=== PATIENT | male | born 1940 | race Caucasian/White ===

== ENCOUNTER 2019-06-25 10:44 | Inpatient (IN) ==
[2019-06-25 11:50] LABS: ALLEN TEST YES; BE 0.5 mmoll (-3.0-3.0); BLOOD TYPE ARTERIAL; HCO3-(ACT) 25.1 mmoll (20.0-26.0); METHB 0.7 % (0.0-1.5); O2(CT) 21.4 mL/dL (15.0-23.0); O2HB 91.8 % (95.0-99.0); PCO2(98.6) 32 mmHg (35-45); PO2(98.6) 65 mmHg (60-100); SAMPLE BLOOD; SAO2 95.2 % (95.0-100.0); THB 16.6 g/dL (11.5-17.4); pH(98.6) 7.47 (7.35-7.45)
[2019-06-25 11:52] LABS: MODALITY CANNULA
[2019-06-25 13:12] LABS: BASO# 0.03 X1000 (0.0-0.2); BASO% 0.3 % (0.0-0.8); EOS# 0.14 X1000 (0.0-0.7); EOS% 1.5 % (0.0-10.0); HEMATOCRIT 49.5 % (42.0-52.0); IMM GRAN# 0.03 X1000 (0.0-0.04); IMM GRAN% 0.3 % (0.0-0.5); LYMPH% 14.7 % (20.5-51.1); MCH 31.4 PG (27-31); MCHC 34.3 g/dL (33-37); MCV 91.3 FL (81-99); MONO# 1.62 X1000 (0.11-0.59); MPV 11.8 FL (7.4-10.4); NEUT# 6.29 X1000 (1.4-6.5); NEUT% 66.2 % (42.2-75.2); PLT 67 X1000 (130-400); RBC 5.42 XMIL (4.7-6.1); RDW 18.6 % (11.5-14.5); WBC 9.51 X1000 (4.8-10.8)
[2019-06-25 13:48] LABS: ALB/GLOB RATIO 0.9; CALCIUM 9.6 mg/dL (8.8-10.2); CREATININE 1.5 mg/dL (0.7-1.2); POTASSIUM 3.8 mmol/L (3.5-5.1); TOTAL BILIRUBIN 1.39 mg/dL (0.20-1.00); TOTAL PROTEIN 6.5 g/dL (6.3-8.3)
[2019-06-25 14:24] LABS: INR 1.34; PROTIME 16.8 Seconds (11.0-16.0)
[2019-06-26 08:21] LABS: BASO# 0.01 X1000 (0.0-0.2); BASO% 0.1 % (0.0-0.8); HEMATOCRIT 45.9 % (42.0-52.0); HEMOGLOBIN 15.4 g/dL (14.0-18.0); IMM GRAN# 0.03 X1000 (0.0-0.04); IMM GRAN% 0.4 % (0.0-0.5); LYMPH# 0.85 X1000 (1.2-3.4); LYMPH% 10.2 % (20.5-51.1); MCH 30.2 PG (27-31); MCHC 33.6 g/dL (33-37); MONO% 7.2 % (1.7-9.3); MPV 12.5 FL (7.4-10.4); NEUT# 6.83 X1000 (1.4-6.5); NEUT% 82.1 % (42.2-75.2); PLT 92 X1000 (130-400); RDW 17.5 % (11.5-14.5); WBC 8.32 X1000 (4.8-10.8)
[2019-06-26 08:31] LABS: INR 1.49; PROTIME 18.3 Seconds (11.0-16.0)
[2019-06-26 08:35] LABS: ALB/GLOB RATIO 1.3; ALBUMIN 3.4 g/dL (3.5-5.0); CALCIUM 9.2 mg/dL (8.8-10.2); CREATININE 1.3 mg/dL (0.7-1.2); POTASSIUM 3.6 mmol/L (3.5-5.1); TOTAL BILIRUBIN 1.43 mg/dL (0.20-1.00); TOTAL PROTEIN 6.1 g/dL (6.3-8.3)
[2019-06-27 08:32] LABS: ALBUMIN 3.8 g/dL (3.5-5.0); CALCIUM 9.6 mg/dL (8.8-10.2); CREATININE 1.3 mg/dL (0.7-1.2); PHOSPHORUS 2.4 mg/dL (2.7-4.5)
[2019-06-27 11:38] LABS: HEPATITIS PROFILE ACUTE SEE COMMENTS
[2019-06-28 02:30] LABS: ALLEN TEST YES; BE 4.6 mmoll (-3.0-3.0); BLOOD TYPE ARTERIAL; HCO3-(ACT) 28.4 mmoll (20.0-26.0); METHB 0.9 % (0.0-1.5); O2(CT) 21.6 mL/dL (15.0-23.0); O2HB 93.8 % (95.0-99.0); PCO2(98.6) 38 mmHg (35-45); PO2(98.6) 73 mmHg (60-100); SAMPLE BLOOD; SAO2 97.2 % (95.0-100.0); THB 16.4 g/dL (11.5-17.4); pH(98.6) 7.48 (7.35-7.45)
[2019-06-28 02:33] LABS: MODALITY CANNULA
[2019-06-28 03:02] LABS: HEMATOCRIT 47.9 % (42.0-52.0); HEMOGLOBIN 16.3 g/dL (14.0-18.0); MCH 30.3 PG (27-31); MPV 11.5 FL (7.4-10.4); RBC 5.38 XMIL (4.7-6.1); RDW 17.7 % (11.5-14.5); WBC 12.53 X1000 (4.8-10.8)
[2019-06-28 03:09] LABS: ALBUMIN 4.5 g/dL (3.5-5.0); CALCIUM 9.5 mg/dL (8.8-10.2); CREATININE 1.2 mg/dL (0.7-1.2); PHOSPHORUS 1.9 mg/dL (2.7-4.5); POTASSIUM 3.8 mmol/L (3.5-5.1)
[2019-06-28 06:55] LABS: URINE SOURCE CATH
[2019-06-28 06:57] LABS: BILIRUBIN URINE NEGATIVE (NEGATIVE); BLOOD URINE NEGATIVE (NEGATIVE); COLOR YELLOW; GLUCOSE URINE NEGATIVE (NEGATIVE); KETONE URINE NEGATIVE (NEGATIVE); LEUKOCYTES URINE NEGATIVE (NEGATIVE); NITRITE URINE NEGATIVE (NEGATIVE); PH URINE 6.5; PROTEIN URINE NEGATIVE (NEGATIVE); SP GRAVITY URINE 1.012; TURBIDITY URINE CLEAR (CLEAR); UROBILINOGEN URINE NORMAL (NORMAL)
[2019-06-28 06:59] LABS: UR EPITHELIAL CELLS <10 /HPF (<10); URINE BACTERIA NEGATIVE /HPF; URINE RBC <10 /HPF (<10); URINE WBC <10 /HPF (<10)
[2019-06-28 12:25] VITALS: BP 124/65
== END 2019-06-28 22:35 | disposition hospice, home (50) | DRG 291 ==
LOC: ED 10:44 → EDIPHOLD 18:33 → 3N 20:28
PROVIDERS: ATTEND Internal Medicine